=== PATIENT | male | born 1995 | race Caucasian/White ===

== ENCOUNTER 2018-08-11 10:21 | Emergency (ER) | payer MEDICAID ==
[~2018-08-11] VITALS: Ht 190.5 cm; Wt 77.1 kg
[2018-08-11 10:30] VITALS: BP 123/78
== END 2018-08-11 11:26 | disposition left against medical advice (07) ==
LOC: ER 10:21
DX: L02.31 Cutaneous abscess of buttock (principal); Z53.21 Procedure and treatment not carried out due to patient leaving prior to being seen by health care provider

== ENCOUNTER 2019-04-26 22:21 | Emergency (ER) | payer MEDICAID ==
[~2019-04-26] VITALS: Ht 182.9 cm; Wt 77.1 kg
[2019-04-27] MEDS ORDERED: ACETAMINOPHEN/CODEINE#3 (300/30mg) TAB PO ONE
[2019-04-27 02:00] VITALS: BP 128/72
== END 2019-04-27 02:19 | disposition home or self-care (01) ==
LOC: EDBD 22:21 → ER 22:23
DX: S20.211A Contusion of right front wall of thorax, initial encounter (principal); J45.909 Unspecified asthma, uncomplicated; Y04.2XXA Assault by strike against or bumped into by another person, initial encounter; Y93.89 Activity, other specified; Y92.89 Other specified places as the place of occurrence of the external cause; Y99.8 Other external cause status
CPT/HCPCS: 71046; 93005